=== PATIENT | male | born 1975 | race Caucasian/White ===

== ENCOUNTER 2018-04-13 06:58 | Emergency (ER) | payer OTHER ==
[~2018-04-13] VITALS: Ht 188 cm; Wt 97.5 kg
[~2018-04-13 06:58] MED LIST: AUGMENTIN 875875 M1 PO; KEFLEX500 MG PO; NOHOMEMEDICATIONS; PREDNISONE 20 M20 M1 PO; PREDNISONE50 MG PO; PROMETHAZINE-D120 ML PO; SINUS RELIEF14.7 ML NS
[2018-04-13] MEDS ORDERED: LITHIUM CARBON300 M3 PO (07:12)
[2018-04-13] MEDS ORDERED: CLONAZEPAM 1 MG1 M1 PO (07:12)
[2018-04-13] MEDS ORDERED: DEPAKOTE ER500 MG PO ×2 (07:13)
[2018-04-13 07:50] LABS: ABSOLUTE EOSINOPHILS 0.1 thou/uL (0.0-0.7); ABSOLUTE LYMPHOCYTES 1.9 thou/uL (0.8-5.3); ABSOLUTE MONOCYTES 0.7 thou/uL (0.0-1.2); BASOPHILS 0.4 %; EOSINOPHILS 1.3 %; HEMATOCRIT 43.7 % (42.0-52.0); HEMOGLOBIN 15.3 gm/dL (14.0-18.0); LYMPHOCYTES 24.8 %; MCH 30.8 pg (26.0-34.0); MCV 88.1 fL (80.0-100.0); MONOCYTES 9.5 %; MPV 8.3 fl. (7.2-11.1); NUCLEATED RBCS 0 /100WBC; PLATELET COUNT* 361 thou/uL (150-400); RBC 4.96 mil/uL (4.50-6.00); RDW-CV 12.8 % (10.5-14.5); WBC 7.8 thou/uL (4.0-11.0)
[2018-04-13 08:00] LABS: ANION GAP 7 mmol/L (7-16); BUN 10 mg/dL (7-18); CALCIUM 9.1 mg/dL (8.5-10.1); CHLORIDE 98 mmol/L (98-107); CO2 29 mmol/L (21-32); GLUCOSE 356 mg/dL (70-99); POTASSIUM 3.7 mmol/L (3.5-5.1); SODIUM 134 mmol/L (136-145)
[2018-04-13 08:04] LABS: ALBUMIN 3.5 g/dL (3.4-5.0); ALKALINE PHOSPHATASE 93 U/L (46-116); LIPASE 222 U/L (73-393); SGOT 6 U/L (15-37); SGPT 19 U/L (30-65); TOTAL BILIRUBIN 0.2 mg/dL (<0.1-1.0); TOTAL PROTEIN 7.7 g/dL (6.4-8.2)
[2018-04-13 08:18] LABS: TROPONIN-I LEVEL <0.06 ng/mL (<0.06)
[2018-04-13 08:19] LABS: URINE BILIRUBIN NEGATIVE (Negative); URINE BLOOD NEGATIVE (Negative); URINE CLARITY CLEAR; URINE COLOR YELLOW; URINE GLUCOSE-RANDOM 2+ (Negative); URINE KETONES TRACE (Negative); URINE LEUKOCYTES-REFLEX NEGATIVE (Negative); URINE NITRITE-REFLEX NEGATIVE (Negative); URINE PROTEIN NEGATIVE (Negative); URINE SPECIFIC GRAVITY 1.015 (1.005-1.030)
[2018-04-13] MEDS ORDERED: ZOFRAN4 MG PO (09:32)
[2018-04-13] MEDS ORDERED: PEPCID40 MG PO (09:32)
[2018-04-13] MEDS ORDERED: TRAMADOL 50 MG50 MG PO (09:32)
[2018-04-13 09:49] VITALS: BP 135/87
--- NOTE | 2018-04-13 10:35 | EKG ---
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
== END 2018-04-13 09:51 | disposition home or self-care (01) ==
LOC: M.ERS 06:58
PROVIDERS: Emergency Medicine
DX: R10.12 Left upper quadrant pain (principal); R11.0 Nausea; E11.9 Type 2 diabetes mellitus without complications; F31.9 Bipolar disorder, unspecified

== ENCOUNTER 2018-04-15 21:32 | Emergency (ER) | payer OTHER ==
[~2018-04-15] VITALS: Ht 188 cm; Wt 102.1 kg
[~2018-04-15 21:32] MED LIST changes: +CLONAZEPAM 1 MG1 M1 PO; +DEPAKOTE ER500 MG PO; +LITHIUM CARBON300 M3 PO; +PEPCID40 MG PO; +TRAMADOL 50 MG50 MG PO; +ZOFRAN4 MG PO
[2018-04-15 21:50] LABS: URINE BILIRUBIN NEGATIVE (Negative); URINE BLOOD NEGATIVE (Negative); URINE CLARITY CLEAR; URINE COLOR YELLOW; URINE GLUCOSE-RANDOM 3+ (Negative); URINE KETONES NEGATIVE (Negative); URINE LEUKOCYTES-REFLEX NEGATIVE (Negative); URINE NITRITE-REFLEX NEGATIVE (Negative); URINE PROTEIN NEGATIVE (Negative); URINE SPECIFIC GRAVITY <= 1.005 (1.005-1.030)
[2018-04-15 22:46] LABS: ABSOLUTE BASOPHILS 0.1 thou/uL (0.0-0.2); ABSOLUTE EOSINOPHILS 0.1 thou/uL (0.0-0.7); ABSOLUTE LYMPHOCYTES 2.4 thou/uL (0.8-5.3); ABSOLUTE MONOCYTES 0.7 thou/uL (0.0-1.2); ABSOLUTE NEUTROPHILS 5.7 thou/uL (1.6-8.1); BASOPHILS 1.4 %; EOSINOPHILS 0.9 %; HEMATOCRIT 44.9 % (42.0-52.0); HEMOGLOBIN 15.4 gm/dL (14.0-18.0); LYMPHOCYTES 26.4 %; MCH 30.5 pg (26.0-34.0); MCHC 34.2 g/dL (28.0-37.0); MCV 89.3 fL (80.0-100.0); MPV 8.2 fl. (7.2-11.1); NUCLEATED RBCS 0 /100WBC; PLATELET COUNT* 379 thou/uL (150-400); POLYS 63.3 %; RBC 5.03 mil/uL (4.50-6.00); RDW-CV 12.8 % (10.5-14.5); WBC 8.9 thou/uL (4.0-11.0)
[2018-04-15 22:54] LABS: CALCIUM 9.4 mg/dL (8.5-10.1); CREATININE 1.1 mg/dL (0.6-1.3); POTASSIUM 3.8 mmol/L (3.5-5.1)
[2018-04-15 22:59] LABS: ALBUMIN 3.6 g/dL (3.4-5.0); TOTAL BILIRUBIN 0.3 mg/dL (<0.1-1.0); TOTAL PROTEIN 7.5 g/dL (6.4-8.2)
[2018-04-16] MEDS ORDERED: PHENERGAN 25 MG25 M1 PO (00:16)
[2018-04-16] MEDS ORDERED: NEURONTIN 300300 M1 PO (00:16)
[2018-04-16] MEDS ORDERED: PRILOSEC 20 MG20 MG PO (00:16)
[2018-04-16 00:32] VITALS: BP 104/55
== END 2018-04-16 00:33 | disposition left against medical advice (07) ==
LOC: M.ERS 21:32
PROVIDERS: Nurse Practitioner Family
DX: E11.65 Type 2 diabetes mellitus with hyperglycemia (principal); K21.9 Gastro-esophageal reflux disease without esophagitis; M54.30 Sciatica, unspecified side; F31.9 Bipolar disorder, unspecified

== ENCOUNTER 2018-07-10 19:53 | Emergency (ER) | payer OTHER ==
[~2018-07-10] VITALS: Ht 188 cm; Wt 97.1 kg
[~2018-07-10 19:53] MED LIST changes: +NEURONTIN 300300 M1 PO; +PHENERGAN 25 MG25 M1 PO; +PRILOSEC 20 MG20 MG PO
[2018-07-10] MEDS ORDERED: VALIUM (20:02)
[2018-07-10 20:37] LABS: ABSOLUTE BASOPHILS 0.1 thou/uL (0.0-0.2); ABSOLUTE EOSINOPHILS 0.5 thou/uL (0.0-0.7); ABSOLUTE LYMPHOCYTES 2.3 thou/uL (0.8-5.3); ABSOLUTE MONOCYTES 0.6 thou/uL (0.0-1.2); ABSOLUTE NEUTROPHILS 5.3 thou/uL (1.6-8.1); BASOPHILS 0.9 %; EOSINOPHILS 5.8 %; HEMATOCRIT 41.1 % (42.0-52.0); HEMOGLOBIN 14.4 gm/dL (14.0-18.0); LYMPHOCYTES 26.5 %; MCH 30.5 pg (26.0-34.0); MCV 87.3 fL (80.0-100.0); MONOCYTES 6.4 %; MPV 7.7 fl. (7.2-11.1); NUCLEATED RBCS 0 /100WBC; PLATELET COUNT* 381 thou/uL (150-400); POLYS 60.4 %; RBC 4.71 mil/uL (4.50-6.00); RDW-CV 12.9 % (10.5-14.5); WBC 8.7 thou/uL (4.0-11.0)
[2018-07-10 20:46] LABS: ANION GAP 11 mmol/L (7-16); BUN 12 mg/dL (7-18); CALCIUM 9.2 mg/dL (8.5-10.1); CHLORIDE 98 mmol/L (98-107); CO2 27 mmol/L (21-32); CREATININE 0.9 mg/dL (0.6-1.3); GLUCOSE 397 mg/dL (70-99); POTASSIUM 3.7 mmol/L (3.5-5.1); SODIUM 136 mmol/L (136-145)
[2018-07-10 21:01] LABS: ALBUMIN 3.3 g/dL (3.4-5.0); ALKALINE PHOSPHATASE 81 U/L (46-116); LIPASE 148 U/L (73-393); SGOT 6 U/L (15-37); SGPT 19 U/L (30-65); TOTAL BILIRUBIN 0.2 mg/dL (<0.1-1.0); TOTAL PROTEIN 7.3 g/dL (6.4-8.2); TROPONIN-I LEVEL <0.06 ng/mL (<0.06)
[2018-07-10 21:17] LABS: URINE BILIRUBIN NEGATIVE (Negative); URINE BLOOD NEGATIVE (Negative); URINE CLARITY CLEAR; URINE COLOR YELLOW; URINE GLUCOSE-RANDOM 3+ (Negative); URINE KETONES TRACE (Negative); URINE LEUKOCYTES-REFLEX NEGATIVE (Negative); URINE NITRITE-REFLEX NEGATIVE (Negative); URINE PROTEIN NEGATIVE (Negative); URINE SPECIFIC GRAVITY <= 1.005 (1.005-1.030); URINE UROBILINOGEN 0.2 E.U./dl (0.2-1.0)
[2018-07-10] MEDS ORDERED: ZPAK PO (21:28)
[2018-07-10] MEDS ORDERED: NORCO 5-325 TA1 EACH PO (21:28)
[2018-07-10] MEDS ORDERED: ZOFRAN ODT4 MG PO (21:28)
[2018-07-10 22:43] VITALS: BP 148/78
--- NOTE | 2018-07-12 11:37 | EKG ---
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 : 1975 Requested By: Yue Meade Order Number: [id number] MD: Jose Guadalupe Womack Measurements Intervals [place] Rate: 88 P: 11 [place]: 172 QRS: 113 QRSD: 104 T: 5 QT: 379 QTc: 459 Interpretive Statements Sinus rhythm Left posterior fascicular block Abnormal R-wave progression, late transition Inferior infarct, old Compared to ECG 04/13/2018 08:17:12 Left posterior fascicular block now present Myocardial infarct finding still present Electronically Signed On 07-12-2018 11:37:33 CDT by Jose Guadalupe Womack [email or web address] <ELECTRONICALLY SIGNED> By: Jose Guadalupe Womack MD, [facility] 07/12/18 1137 07 07 Jose Guadalupe Womack MD, [facility] /EPI
== END 2018-07-10 22:46 | disposition home or self-care (01) ==
LOC: M.ERS 19:53
PROVIDERS: Physician Assistant
DX: J18.9 Pneumonia, unspecified organism (principal); E11.65 Type 2 diabetes mellitus with hyperglycemia; R10.13 Epigastric pain; R10.84 Generalized abdominal pain; R10.12 Left upper quadrant pain; F31.9 Bipolar disorder, unspecified

== ENCOUNTER 2018-10-23 16:12 | Emergency (ER) | payer OTHER ==
[~2018-10-23] VITALS: Ht 188 cm; Wt 98.0 kg
[~2018-10-23 16:12] MED LIST changes: +NORCO 5-325 TA1 EACH PO; +VALIUM; +ZOFRAN ODT4 MG PO; +ZPAK PO
[2018-10-23 16:46] LABS: ABSOLUTE BASOPHILS 0.1 thou/uL (0.0-0.2); ABSOLUTE EOSINOPHILS 0.1 thou/uL (0.0-0.7); ABSOLUTE MONOCYTES 0.5 thou/uL (0.0-1.2); ABSOLUTE NEUTROPHILS 4.4 thou/uL (1.6-8.1); BASOPHILS 1.3 %; EOSINOPHILS 1.6 %; HEMATOCRIT 42.7 % (42.0-52.0); HEMOGLOBIN 14.8 gm/dL (14.0-18.0); LYMPHOCYTES 28.3 %; MCH 30.8 pg (26.0-34.0); MCHC 34.7 g/dL (28.0-37.0); MCV 88.7 fL (80.0-100.0); MONOCYTES 6.8 %; NUCLEATED RBCS 0 /100WBC; PLATELET COUNT* 386 thou/uL (150-400); RBC 4.82 mil/uL (4.50-6.00); RDW-CV 12.8 % (10.5-14.5); WBC 7.1 thou/uL (4.0-11.0)
[2018-10-23 16:55] LABS: ANION GAP 7 mmol/L (7-16); BUN 11 mg/dL (7-18); CALCIUM 9.2 mg/dL (8.5-10.1); CHLORIDE 101 mmol/L (98-107); CO2 28 mmol/L (21-32); CREATININE 0.9 mg/dL (0.6-1.3); GLUCOSE 213 mg/dL (70-99); POTASSIUM 3.8 mmol/L (3.5-5.1); SODIUM 136 mmol/L (136-145)
[2018-10-23 17:04] LABS: ALBUMIN 3.6 g/dL (3.4-5.0); ALKALINE PHOSPHATASE 72 U/L (46-116); LIPASE 426 U/L (73-393); SGOT 10 U/L (15-37); SGPT 22 U/L (30-65); TOTAL BILIRUBIN 0.3 mg/dL (<0.1-1.0); TOTAL PROTEIN 7.4 g/dL (6.4-8.2); TROPONIN-I LEVEL <0.06 ng/mL (<0.06)
[2018-10-23] MEDS ORDERED: METFORMIN HCL500 M2 PO (17:13)
[2018-10-23] MEDS ORDERED: LIPITOR10 MG PO (17:14)
[2018-10-23] MEDS ORDERED: JANUVIA100 MG PO (17:14)
[2018-10-23] MEDS ORDERED: VALIUM5 MG PO (17:14)
[2018-10-23 17:22] LABS: URINE BILIRUBIN NEGATIVE (Negative); URINE BLOOD NEGATIVE (Negative); URINE CLARITY CLEAR; URINE COLOR YELLOW; URINE GLUCOSE-RANDOM 2+ (Negative); URINE KETONES TRACE (Negative); URINE LEUKOCYTES-REFLEX NEGATIVE (Negative); URINE NITRITE-REFLEX NEGATIVE (Negative); URINE PROTEIN NEGATIVE (Negative); URINE SPECIFIC GRAVITY >= 1.030 (1.005-1.030); URINE UROBILINOGEN 0.2 E.U./dl (0.2-1.0)
[2018-10-23] MEDS ORDERED: NORCO 5-325 TA1 EAC1 PO (18:18)
[2018-10-23] MEDS ORDERED: BENTYL 20 MG TA20 M1 PO (18:18)
[2018-10-23] MEDS ORDERED: ZOFRAN ODT4 MG DISSOLVE (18:18)
[2018-10-23 18:33] VITALS: BP 127/80
--- NOTE | 2018-10-24 11:19 | EKG ---
[place] [address] ELECTROCARDIOGRAM REPORT Name: CHRISTINA JOHNSTON Room: [facility]#: [id number] Admission: 10/23/18 Attend Phys: Discharge: 10/23/18 Date of : 75 Report #: [id number] THIS REPORT FOR: //name// [facility] ED Test Date: 2018-10-23 Test Time: 16:49:08 Pat Name: CHRISTINA JOHNSTON Department: Room: Gender: M Lab Specialist: KRISTYN : 1975 Requested By: José Luis Busch Order Number: [id number] MD: Teofilo Walker Measurements Intervals [place] Rate: 70 P: 24 [place]: 168 QRS: 72 QRSD: 106 T: 26 QT: 414 QTc: 447 Interpretive Statements Sinus rhythm Inferior infarct, old Compared to ECG 07/10/2018 20:08:05 Left posterior fascicular block no longer present Myocardial infarct finding still present Electronically Signed On 10-24-2018 11:19:38 CDT by Teofilo Walker [email or web address] <ELECTRONICALLY SIGNED> By: James Walker MD, [facility] 10/24/18 1119 1649 1649 James Walker MD, [facility] /EPI
== END 2018-10-23 18:34 | disposition home or self-care (01) ==
LOC: M.ERS 16:12
PROVIDERS: Emergency Medicine Emergency Medical Services
DX: R10.30 Lower abdominal pain, unspecified (principal); R19.7 Diarrhea, unspecified; R11.2 Nausea with vomiting, unspecified; E11.9 Type 2 diabetes mellitus without complications; F31.9 Bipolar disorder, unspecified

== ENCOUNTER 2019-08-23 07:59 | Emergency (ER) | payer OTHER ==
[~2019-08-23] VITALS: Ht 188 cm; Wt 105.2 kg
[~2019-08-23 07:59] MED LIST changes: +BENTYL 20 MG TA20 M1 PO; +JANUVIA100 MG PO; +LIPITOR10 MG PO; +METFORMIN HCL500 M2 PO; +NORCO 5-325 TA1 EAC1 PO; +VALIUM5 MG PO; +ZOFRAN ODT4 MG DISSOLVE
[2019-08-23 08:33] LABS: ABSOLUTE BASOPHILS 0.1 thou/uL (0.0-0.2); ABSOLUTE EOSINOPHILS 0.1 thou/uL (0.0-0.7); ABSOLUTE LYMPHOCYTES 2.1 thou/uL (0.8-5.3); ABSOLUTE MONOCYTES 0.9 thou/uL (0.0-1.2); ABSOLUTE NEUTROPHILS 9.9 thou/uL (1.6-8.1); BASOPHILS 0.5 %; HEMATOCRIT 41.3 % (42.0-52.0); HEMOGLOBIN 14.3 gm/dL (14.0-18.0); LYMPHOCYTES 16.3 %; MCH 30.3 pg (26.0-34.0); MCHC 34.5 g/dL (28.0-37.0); MCV 87.6 fL (80.0-100.0); MPV 7.8 fl. (7.2-11.1); NUCLEATED RBCS 0 /100WBC; PLATELET COUNT* 317 thou/uL (150-400); POLYS 75.2 %; RBC 4.72 mil/uL (4.50-6.00); RDW-CV 13.2 % (10.5-14.5); WBC 13.1 thou/uL (4.0-11.0)
[2019-08-23 08:38] LABS: CALCIUM 8.3 mg/dL (8.5-10.1); POTASSIUM 3.9 mmol/L (3.5-5.1)
[2019-08-23 08:49] LABS: ALBUMIN 3.2 g/dL (3.4-5.0); MAGNESIUM 1.6 mg/dL (1.8-2.4); TOTAL BILIRUBIN 0.3 mg/dL (<0.1-1.0); TOTAL PROTEIN 6.8 g/dL (6.4-8.2)
[2019-08-23] MEDS ORDERED: NORCO 5-325 TA1 EAC1 PO (09:10)
[2019-08-23] MEDS ORDERED: ZPAK PO (09:10)
[2019-08-23 09:25] VITALS: BP 134/78
--- NOTE | 2019-08-23 15:41 | EKG ---
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: : 1975 Requested By: José Luis Busch Order Number: [id number] MD: Ebenezer August Measurements Intervals [place] Rate: 81 P: -13 DC: 171 QRS: 85 QRSD: 98 T: 38 QT: 400 QTc: 465 Interpretive Statements Sinus rhythm Compared to ECG 10/23/2018 16:49:08 Myocardial infarct finding no longer present Electronically Signed On 08-23-2019 15:40:44 CDT by Ebenezer August [email or web address] <ELECTRONICALLY SIGNED> By: Ebenezer August MD, [facility] 08/23/19 1540 0802 08 Ebenezer August MD, [facility] /EPI
== END 2019-08-23 09:26 | disposition home or self-care (01) ==
LOC: M.ERS 07:59
PROVIDERS: Emergency Medicine Emergency Medical Services
DX: R07.89 Other chest pain (principal); E11.9 Type 2 diabetes mellitus without complications; E78.00 Pure hypercholesterolemia, unspecified; Z79.899 Other long term (current) drug therapy; Z98.890 Other specified postprocedural states

== ENCOUNTER 2019-11-19 17:46 | Emergency (ER) | payer OTHER ==
[~2019-11-19] VITALS: Ht 188 cm; Wt 104.3 kg
[2019-11-19 18:43] LABS: URINE BILIRUBIN NEGATIVE (Negative); URINE BLOOD NEGATIVE (Negative); URINE CLARITY CLEAR; URINE COLOR YELLOW; URINE GLUCOSE-RANDOM 3+ (Negative); URINE KETONES TRACE (Negative); URINE LEUKOCYTES-REFLEX NEGATIVE (Negative); URINE NITRITE-REFLEX NEGATIVE (Negative); URINE PROTEIN NEGATIVE (Negative); URINE UROBILINOGEN 0.2 E.U./dl (0.2-1.0)
[2019-11-19 18:52] LABS: ABSOLUTE BASOPHILS 0.1 thou/uL (0.0-0.2); ABSOLUTE EOSINOPHILS 0.1 thou/uL (0.0-0.7); ABSOLUTE LYMPHOCYTES 2.4 thou/uL (0.8-5.3); ABSOLUTE MONOCYTES 0.6 thou/uL (0.0-1.2); ABSOLUTE NEUTROPHILS 6.5 thou/uL (1.6-8.1); BASOPHILS 0.8 %; EOSINOPHILS 1.5 %; HEMATOCRIT 40.1 % (42.0-52.0); HEMOGLOBIN 14.2 gm/dL (14.0-18.0); LYMPHOCYTES 24.4 %; MCH 30.6 pg (26.0-34.0); MCHC 35.5 g/dL (28.0-37.0); MCV 86.1 fL (80.0-100.0); MONOCYTES 6.5 %; MPV 7.7 fl. (7.2-11.1); NUCLEATED RBCS 0 /100WBC; PLATELET COUNT* 333 thou/uL (150-400); POLYS 66.8 %; RBC 4.66 mil/uL (4.50-6.00); WBC 9.7 thou/uL (4.0-11.0)
[2019-11-19 18:55] LABS: CALCIUM 8.7 mg/dL (8.5-10.1); CREATININE 0.9 mg/dL (0.6-1.3); POTASSIUM 3.7 mmol/L (3.5-5.1)
[2019-11-19 19:00] LABS: ALBUMIN 3.3 g/dL (3.4-5.0); TOTAL BILIRUBIN 0.4 mg/dL (<0.1-1.0); TOTAL PROTEIN 7.1 g/dL (6.4-8.2)
[2019-11-19] MEDS ORDERED: NORCO 5-325 TA1 EAC2 PO (19:52)
[2019-11-19] MEDS ORDERED: ONDANSETRON ODT4 MG PO (19:52)
[2019-11-19 20:23] VITALS: BP 148/96
== END 2019-11-19 20:23 | disposition home or self-care (01) ==
LOC: M.ERS 17:46
PROVIDERS: Physician Assistant
DX: R10.84 Generalized abdominal pain (principal); R19.7 Diarrhea, unspecified; E11.9 Type 2 diabetes mellitus without complications; E78.00 Pure hypercholesterolemia, unspecified

== ENCOUNTER 2019-12-31 21:07 | Inpatient (IN) | payer OTHER ==
[~2019-12-31] VITALS: Ht 188 cm; Wt 96.0 kg
[~2019-12-31 21:07] MED LIST changes: +NORCO 5-325 TA1 EAC2 PO; +ONDANSETRON ODT4 MG PO
[2019-12-31 21:12] VITALS: BP 196/115
[2019-12-31 21:47] LABS: INFLUENZA A ANTIGEN Negative (Negative); INFLUENZA B ANTIGEN Negative (Negative)
[2019-12-31 22:01] LABS: ABSOLUTE LYMPHOCYTES 1.5 thou/uL (0.8-5.3); ABSOLUTE MONOCYTES 0.6 thou/uL (0.0-1.2); ABSOLUTE NEUTROPHILS 3.6 thou/uL (1.6-8.1); BASOPHILS 0.4 %; EOSINOPHILS 0.3 %; HEMATOCRIT 42.5 % (42.0-52.0); HEMOGLOBIN 14.7 gm/dL (14.0-18.0); LYMPHOCYTES 26.5 %; MCH 29.8 pg (26.0-34.0); MCHC 34.5 g/dL (28.0-37.0); MCV 86.4 fL (80.0-100.0); MONOCYTES 10.1 %; NUCLEATED RBCS 0 /100WBC; PLATELET COUNT* 242 thou/uL (150-400); POLYS 62.7 %; RBC 4.92 mil/uL (4.50-6.00); RDW-CV 13.3 % (10.5-14.5); WBC 5.8 thou/uL (4.0-11.0)
[2019-12-31 22:03] LABS: CALCIUM 9.3 mg/dL (8.5-10.1); POTASSIUM 3.2 mmol/L (3.5-5.1)
[2019-12-31 22:08] LABS: ALBUMIN 3.6 g/dL (3.4-5.0); TOTAL BILIRUBIN 0.4 mg/dL (<0.1-1.0)
[2020-01-01] VITALS (7 sets, daily range): BP systolic 120–129; BP diastolic 74–78
[2020-01-01 04:18] LABS: URINE BILIRUBIN NEGATIVE (Negative); URINE BLOOD NEGATIVE (Negative); URINE CLARITY CLEAR; URINE COLOR YELLOW; URINE GLUCOSE-RANDOM 1+ (Negative); URINE KETONES 1+ (Negative); URINE LEUKOCYTES-REFLEX NEGATIVE (Negative); URINE NITRITE-REFLEX NEGATIVE (Negative); URINE PROTEIN 1+ (Negative); URINE SPECIFIC GRAVITY >= 1.030 (1.005-1.030)
[2020-01-01 04:25] LABS: AMP/METHAMP Negative (Negative); BARBITURATES Negative (Negative); BENZODIAZEPINES POSITIVE (Negative); COCAINE Negative (Negative); METHADONE Negative (Negative); OPIATES POSITIVE (Negative); PCP Negative (Negative); THC POSITIVE (Negative)
[2020-01-01 11:37] LABS: MAGNESIUM 1.5 mg/dL (1.8-2.4); PHOSPHORUS* 2.7 mg/dL (2.5-4.9)
--- NOTE | 2020-01-01 18:21 | NUR ---
REPORT RECIEVED FROM ED. ADMISSION COMPLETED BY RESOURSE NURSE, I CONCUR WITH HER ASSESSMENT. PT ORIENTED TO ROOM, CALL LIGHT SHOWN. FALL AGREEMENT WENT OVER, PT STATED UNDERSTANDING. ISOLATION MAINTAINED. PT ON 3L NC THIS SHIFT. IV PATENT, FLUIDS INFUSING.
[2020-01-02] VITALS (7 sets, daily range): BP systolic 103–140; BP diastolic 61–89
[2020-01-02 02:05] LABS: GLYCOHEMOGLOBIN (HGB A1C) 9.6 % (4.8-5.6)
[2020-01-02 05:52] LABS: ABSOLUTE LYMPHOCYTES 1.5 thou/uL (0.8-5.3); ABSOLUTE MONOCYTES 0.6 thou/uL (0.0-1.2); ABSOLUTE NEUTROPHILS 2.3 thou/uL (1.6-8.1); BASOPHILS 0.3 %; EOSINOPHILS 0.1 %; LYMPHOCYTES 34.3 %; MCH 29.7 pg (26.0-34.0); MCHC 34.1 g/dL (28.0-37.0); MONOCYTES 13.7 %; MPV 8.2 fl. (7.2-11.1); NUCLEATED RBCS 0 /100WBC; PLATELET COUNT* 205 thou/uL (150-400); POLYS 51.6 %; RBC 4.26 mil/uL (4.50-6.00); RDW-CV 13.2 % (10.5-14.5); WBC 4.4 thou/uL (4.0-11.0)
[2020-01-02 05:59] LABS: CALCIUM 8.2 mg/dL (8.5-10.1); CREATININE 0.7 mg/dL (0.6-1.3); POTASSIUM 4.2 mmol/L (3.5-5.1)
[2020-01-02 06:04] LABS: MAGNESIUM 1.8 mg/dL (1.8-2.4); POTASSIUM 4.6 mmol/L (3.5-5.1)
[2020-01-02 06:06] LABS: HEMOGLOBIN 12.6 gm/dL (14.0-18.0)
--- NOTE | 2020-01-02 16:08 | NUR ---
namita resting in bed. up with standby assistance in room. convalescent plasma to be infused today. remdezivir and dexamethasone per iv. vss. tessalon pearls and mucinex for cough.
[2020-01-03] VITALS: BP 94/51
[2020-01-03 04:00] VITALS: BP 115/78
[2020-01-03 05:17] LABS: ABSOLUTE LYMPHOCYTES 1.8 thou/uL (0.8-5.3); ABSOLUTE MONOCYTES 0.5 thou/uL (0.0-1.2); BASOPHILS 0.3 %; EOSINOPHILS 0.1 %; HEMATOCRIT 37.3 % (42.0-52.0); HEMOGLOBIN 12.6 gm/dL (14.0-18.0); LYMPHOCYTES 41.8 %; MCH 29.5 pg (26.0-34.0); MCHC 33.9 g/dL (28.0-37.0); MCV 86.9 fL (80.0-100.0); MONOCYTES 12.1 %; MPV 8.4 fl. (7.2-11.1); NUCLEATED RBCS 0 /100WBC; PLATELET COUNT* 249 thou/uL (150-400); POLYS 45.7 %; RBC 4.29 mil/uL (4.50-6.00); RDW-CV 13.3 % (10.5-14.5); WBC 4.3 thou/uL (4.0-11.0)
[2020-01-03 06:30] LABS: ALBUMIN 3.1 g/dL (3.4-5.0); CALCIUM 8.8 mg/dL (8.5-10.1); CREATININE 1.1 mg/dL (0.6-1.3); POTASSIUM 3.8 mmol/L (3.5-5.1); TOTAL BILIRUBIN 0.2 mg/dL (<0.1-1.0); TOTAL PROTEIN 7.2 g/dL (6.4-8.2)
[2020-01-03 08:00] VITALS: BP 115/73
[2020-01-03 12:00] VITALS: BP 116/60
--- NOTE | 2020-01-03 14:48 | NUR ---
CM SPOKE TO THE PT OVER THE PHONE TO COMPLETE CM ASSESSEMENT. PT CURRENTLY UNDER ENHANCED PRECAUTIONS D/T BEING COVID POSITIVE. PT ALERT AND ORIENTED. PT NORMALLY INDEPENDENT WITH ADL'S AND ACTIVE. PT USES 0 DME. PT HAS 0 HX OF HH OR SNF. PT INFORMS THAT HE HOPE TO RETURN HOME AT D/C WITH NO NEEDS. PT CURRENTLY ON 3L O2, BUT DOES NOT USE OXYGEN AT HOME. PT ALSO REMAINS ON I.V. ABT'S. PULM CONSULT PENDING. CM WILL REMAIN AVAILABLE TO ASSIST WITH D/C PLANNING.
[2020-01-03 16:00] VITALS: BP 110/69
--- NOTE | 2020-01-03 16:47 | NUR ---
PT UP IN ROOM WITH STEADY GAIT. REMAINS ON RA. SATS IN UPPERS 90S. NO SOA WITH EXERTION. TOLERATING PO WELL GOOD APPETITE. UPDATED ON PT STATUS
[2020-01-04] VITALS: BP 116/73
[2020-01-04 05:04] LABS: ABSOLUTE LYMPHOCYTES 1.5 thou/uL (0.8-5.3); ABSOLUTE MONOCYTES 0.7 thou/uL (0.0-1.2); ABSOLUTE NEUTROPHILS 3.7 thou/uL (1.6-8.1); BASOPHILS 0.1 %; HEMATOCRIT 36.5 % (42.0-52.0); HEMOGLOBIN 12.3 gm/dL (14.0-18.0); LYMPHOCYTES 25.6 %; MCH 28.9 pg (26.0-34.0); MCHC 33.6 g/dL (28.0-37.0); MCV 86.1 fL (80.0-100.0); MONOCYTES 11.4 %; NUCLEATED RBCS 0 /100WBC; PLATELET COUNT* 266 thou/uL (150-400); POLYS 62.9 %; RBC 4.25 mil/uL (4.50-6.00); RDW-CV 13.2 % (10.5-14.5); WBC 5.9 thou/uL (4.0-11.0)
[2020-01-04 05:33] LABS: CALCIUM 8.8 mg/dL (8.5-10.1); CREATININE 0.9 mg/dL (0.6-1.3); MAGNESIUM 1.8 mg/dL (1.8-2.4); POTASSIUM 4.3 mmol/L (3.5-5.1); TOTAL BILIRUBIN 0.3 mg/dL (<0.1-1.0); TOTAL PROTEIN 6.6 g/dL (6.4-8.2)
[2020-01-04 08:00] VITALS: BP 114/70
--- NOTE | 2020-01-04 08:00 | NUR ---
ASSUMED CARE OF PATIENTS THIS MORNING FROM NIGHT NURSE. PT IS DOING WELL WITH NO CO OF PAIN OR NAUSEA. PT WAS EDUCATED ON POC AND DISEASE PROCESS, BED IN LOWEST POSITION AND CALL LIGHT IN REACH. WILL CONTINUE TO MONITOR.
[2020-01-05] VITALS: BP 125/81
[2020-01-05 05:41] LABS: ABSOLUTE LYMPHOCYTES 2.9 thou/uL (0.8-5.3); ABSOLUTE MONOCYTES 1.1 thou/uL (0.0-1.2); ABSOLUTE NEUTROPHILS 3.9 thou/uL (1.6-8.1); BASOPHILS 0.2 %; EOSINOPHILS 0.1 %; HEMATOCRIT 36.8 % (42.0-52.0); HEMOGLOBIN 12.8 gm/dL (14.0-18.0); LYMPHOCYTES 36.2 %; MCH 29.7 pg (26.0-34.0); MCHC 34.7 g/dL (28.0-37.0); MCV 85.6 fL (80.0-100.0); MONOCYTES 14.1 %; MPV 8.3 fl. (7.2-11.1); NUCLEATED RBCS 0 /100WBC; PLATELET COUNT* 307 thou/uL (150-400); POLYS 49.4 %; RDW-CV 13.3 % (10.5-14.5)
[2020-01-05 05:57] LABS: CALCIUM 8.9 mg/dL (8.5-10.1); CREATININE 0.9 mg/dL (0.6-1.3); POTASSIUM 3.3 mmol/L (3.5-5.1)
[2020-01-05 08:00] VITALS: BP 121/81
[2020-01-05] MEDS ORDERED: VENTOLIN HFA 1818 GM INH (11:17)
[2020-01-05] MEDS ORDERED: HUMALOG100 UNIT/1 SUBQ (11:17)
[2020-01-05] MEDS ORDERED: DEXAMETHASONE1 MG PO (11:17)
[2020-01-05] MEDS ORDERED: PROTONIX40 M4 PO (11:17)
[2020-01-05] MEDS ORDERED: LEVOFLOXACIN750 MG PO (11:17)
[2020-01-05 11:28] VITALS: BP 121/81
== END 2020-01-05 11:30 | disposition home or self-care (01) | DRG 177 ==
LOC: M.ERS 21:07 → M.2W 22:48 → M.TBA-ER 22:48 → M.2W 01-01 12:51
PROVIDERS: Internal Medicine Critical Care Medicine; Personal Emergency Response Attendant; ADMIT Internal Medicine; ATTEND Internal Medicine
PROC: XW033E5 Introduction of Remdesivir Anti-infective into Peripheral Vein, Percutaneous Approach, New Technology Group 5 (ICD-10-PCS; principal; 2020-01-01)
PROC: XW13325 Transfusion of Convalescent Plasma (Nonautologous) into Peripheral Vein, Percutaneous Approach, New Technology Group 5 (ICD-10-PCS; 2020-01-02)
DX: U07.1 COVID-19 (principal); J12.89 Other viral pneumonia; J96.01 Acute respiratory failure with hypoxia; R65.10 Systemic inflammatory response syndrome (SIRS) of non-infectious origin without acute organ dysfunction; F31.9 Bipolar disorder, unspecified; F41.9 Anxiety disorder, unspecified; E78.00 Pure hypercholesterolemia, unspecified; E11.9 Type 2 diabetes mellitus without complications; I16.0 Hypertensive urgency; I10 Essential (primary) hypertension; K21.9 Gastro-esophageal reflux disease without esophagitis; F19.10 Other psychoactive substance abuse, uncomplicated; Z79.899 Other long term (current) drug therapy; Z79.84 Long term (current) use of oral hypoglycemic drugs; Z28.21 Immunization not carried out because of patient refusal

== ENCOUNTER 2020-01-24 18:46 | Emergency (ER) | payer OTHER ==
[~2020-01-24] VITALS: Ht 188 cm; Wt 99.8 kg
[~2020-01-24 18:46] MED LIST changes: +DEXAMETHASONE1 MG PO; +HUMALOG100 UNIT/1 SUBQ; +LEVOFLOXACIN750 MG PO; +PROTONIX40 M4 PO; +VENTOLIN HFA 1818 GM INH
[2020-01-24] MEDS ORDERED: DEPAKOTE500 MG PO (18:59)
[2020-01-24] MEDS ORDERED: OZEMPIC0.25 MG/0. SUBQ (19:01)
[2020-01-24 19:50] LABS: URINE BILIRUBIN NEGATIVE (Negative); URINE BLOOD NEGATIVE (Negative); URINE CLARITY CLEAR; URINE COLOR YELLOW; URINE GLUCOSE-RANDOM 3+ (Negative); URINE KETONES NEGATIVE (Negative); URINE LEUKOCYTES-REFLEX NEGATIVE (Negative); URINE NITRITE-REFLEX NEGATIVE (Negative); URINE PROTEIN NEGATIVE (Negative); URINE SPECIFIC GRAVITY <= 1.005 (1.005-1.030); URINE UROBILINOGEN 0.2 E.U./dl (0.2-1.0)
[2020-01-24 19:51] LABS: ABSOLUTE BASOPHILS 0.1 thou/uL (0.0-0.2); ABSOLUTE EOSINOPHILS 0.1 thou/uL (0.0-0.7); ABSOLUTE LYMPHOCYTES 1.8 thou/uL (0.8-5.3); ABSOLUTE MONOCYTES 0.7 thou/uL (0.0-1.2); ABSOLUTE NEUTROPHILS 5.2 thou/uL (1.6-8.1); BASOPHILS 1.1 %; EOSINOPHILS 1.4 %; HEMATOCRIT 42.2 % (42.0-52.0); HEMOGLOBIN 14.5 gm/dL (14.0-18.0); LYMPHOCYTES 23.2 %; MCH 30.3 pg (26.0-34.0); MCHC 34.3 g/dL (28.0-37.0); MCV 88.2 fL (80.0-100.0); MONOCYTES 8.3 %; MPV 7.9 fl. (7.2-11.1); NUCLEATED RBCS 0 /100WBC; PLATELET COUNT* 303 thou/uL (150-400); RBC 4.79 mil/uL (4.50-6.00); RDW-CV 14.4 % (10.5-14.5); WBC 7.9 thou/uL (4.0-11.0)
[2020-01-24 19:56] LABS: CREATININE 0.8 mg/dL (0.6-1.3); POTASSIUM 4.2 mmol/L (3.5-5.1)
[2020-01-24 20:03] LABS: ALBUMIN 3.5 g/dL (3.4-5.0); TOTAL BILIRUBIN 0.4 mg/dL (<0.1-1.0); TOTAL PROTEIN 7.3 g/dL (6.4-8.2)
[2020-01-24 22:00] VITALS: BP 137/89
== END 2020-01-24 22:01 | disposition home or self-care (01) ==
LOC: M.ERS 18:46
PROVIDERS: Physician Assistant
DX: E11.65 Type 2 diabetes mellitus with hyperglycemia (principal); F31.9 Bipolar disorder, unspecified; E78.00 Pure hypercholesterolemia, unspecified; Z79.899 Other long term (current) drug therapy; Z79.4 Long term (current) use of insulin

== ENCOUNTER 2020-03-11 00:34 | Emergency (ER) | payer OTHER ==
[~2020-03-11] VITALS: Ht 188 cm; Wt 90.7 kg
[~2020-03-11 00:34] MED LIST changes: +DEPAKOTE500 MG PO; +OZEMPIC0.25 MG/0. SUBQ
[2020-03-11] MEDS ORDERED: OXYCODONE HCL 55 MG PO (04:00)
[2020-03-11 05:18] VITALS: BP 158/97
== END 2020-03-11 05:18 | disposition home or self-care (01) ==
LOC: M.ERS 00:34
DX: S02.609A Fracture of mandible, unspecified, initial encounter for closed fracture (principal); S42.202A Unspecified fracture of upper end of left humerus, initial encounter for closed fracture; E11.9 Type 2 diabetes mellitus without complications; E78.5 Hyperlipidemia, unspecified; Z79.899 Other long term (current) drug therapy; Z79.4 Long term (current) use of insulin; Y04.2XXA Assault by strike against or bumped into by another person, initial encounter; Y93.89 Activity, other specified; Y92.89 Other specified places as the place of occurrence of the external cause; Y99.8 Other external cause status

== ENCOUNTER 2020-10-29 17:43 | Emergency (ER) | payer OTHER ==
[~2020-10-29] VITALS: Ht 188 cm; Wt 104.3 kg
[~2020-10-29 17:43] MED LIST changes: +OXYCODONE HCL 55 MG PO
[2020-10-29] MEDS ORDERED: ELIQUIS5 MG PO (17:57)
[2020-10-29 19:25] LABS: URINE BLOOD NEGATIVE (Negative); URINE CLARITY CLEAR; URINE COLOR YELLOW; URINE GLUCOSE-RANDOM NEGATIVE (Negative); URINE KETONES 1+ (Negative); URINE LEUKOCYTES-REFLEX NEGATIVE (Negative); URINE NITRITE-REFLEX NEGATIVE (Negative); URINE PROTEIN TRACE (Negative); URINE SPECIFIC GRAVITY 1.025 (1.005-1.030); URINE UROBILINOGEN 0.2 E.U./dl (0.2-1.0)
[2020-10-29 19:26] LABS: ICTOTEST (BILI CONFIRMATORY) Negative (Negative); URINE BILIRUBIN 1+ (Negative)
[2020-10-29 19:27] LABS: ABSOLUTE BASOPHILS 0.1 thou/uL (0.0-0.2); ABSOLUTE EOSINOPHILS 0.2 thou/uL (0.0-0.7); ABSOLUTE LYMPHOCYTES 2.7 thou/uL (0.8-5.3); ABSOLUTE MONOCYTES 0.6 thou/uL (0.0-1.2); ABSOLUTE NEUTROPHILS 5.2 thou/uL (1.6-8.1); BASOPHILS 0.8 %; EOSINOPHILS 1.7 %; HEMATOCRIT 46.7 % (42.0-52.0); HEMOGLOBIN 16.1 gm/dL (14.0-18.0); LYMPHOCYTES 30.8 %; MCH 30.2 pg (26.0-34.0); MCHC 34.4 g/dL (28.0-37.0); MCV 87.8 fL (80.0-100.0); MONOCYTES 7.2 %; MPV 7.5 fl. (7.2-11.1); NUCLEATED RBCS 0 /100WBC; PLATELET COUNT* 399 thou/uL (150-400); POLYS 59.5 %; RBC 5.32 mil/uL (4.50-6.00); RDW-CV 13.2 % (10.5-14.5); WBC 8.7 thou/uL (4.0-11.0)
[2020-10-29 19:37] LABS: CALCIUM 9.3 mg/dL (8.5-10.1); POTASSIUM 4.1 mmol/L (3.5-5.1)
[2020-10-29 19:41] LABS: ALBUMIN 4.3 g/dL (3.4-5.0); MAGNESIUM 1.9 mg/dL (1.8-2.4); TOTAL BILIRUBIN 0.5 mg/dL (<0.1-1.0); TOTAL PROTEIN 8.3 g/dL (6.4-8.2)
[2020-10-29 19:54] LABS: BE -0.3 mmol/L (-2 to +3); PO2 VENOUS 78.7 mmHg (35.0-45.0)
[2020-10-29] MEDS ORDERED: HYDROCODON-ACE1 EAC8 PO (21:08)
[2020-10-29] MEDS ORDERED: CIPROFLOXACIN500 M1 PO (21:08)
[2020-10-29] MEDS ORDERED: ZOFRAN ODT4 MG PO (21:08)
[2020-10-29 21:21] VITALS: BP 126/87
--- NOTE | 2020-10-30 10:47 | EKG ---
[place] [address] ELECTROCARDIOGRAM REPORT Name: CHRISTINA JOHNSTON Room: [facility]#: [id number] Admission: 10/29/20 Attend Phys: Discharge: 10/29/20 Date of : 75 Date of Service: 10/29/201922 Report #: [id number] THIS REPORT FOR: //name// [facility] ED Test Date: 2020-10-29 Test Time: 19:23:12 Pat Name: CHRISTINA JOHNSTON Department: Room: Gender: Latex Caster: [place] : 1975 Requested By: Katina Laguerre Order Number: [id number] MD: Chuck Mccormack Measurements Intervals [place] Rate: 80 P: 8 VA: 213 QRS: 109 QRSD: 93 T: 35 QT: 392 QTc: 453 Interpretive Statements Sinus rhythm Prolonged [place] interval Right axis deviation Abnormal R-wave progression, late transition Compared to ECG 08/23/2019 08:02:35 First degree AV block now present Right-axis deviation now present Electronically Signed On 10-30-2020 10:47:45 CDT by Chuck Mccormack [email or web address] <ELECTRONICALLY SIGNED> By: Chuck Mccormack MD, [facility] 10/30/20 1047 22 22 Chuck Mccormack MD, [facility] /EPI
== END 2020-10-29 21:29 | disposition home or self-care (01) ==
LOC: M.ERS 17:43
PROVIDERS: Emergency Medicine
DX: R19.7 Diarrhea, unspecified (principal); Z20.822 Contact with and (suspected) exposure to COVID-19; R10.13 Epigastric pain; E11.9 Type 2 diabetes mellitus without complications; F31.9 Bipolar disorder, unspecified; E78.00 Pure hypercholesterolemia, unspecified; Z79.51 Long term (current) use of inhaled steroids; Z79.84 Long term (current) use of oral hypoglycemic drugs; Z79.899 Other long term (current) drug therapy

== ENCOUNTER 2021-01-29 19:56 | Emergency (ER) | payer OTHER ==
[~2021-01-29] VITALS: Ht 188 cm; Wt 98.9 kg
[~2021-01-29 19:56] MED LIST changes: +CIPROFLOXACIN500 M1 PO; +ELIQUIS5 MG PO; +HYDROCODON-ACE1 EAC8 PO
[2021-01-29 20:07] VITALS: BP 174/97
== END 2021-01-29 22:30 | disposition left against medical advice (07) ==
LOC: M.ERS 19:56
DX: R51.9 Headache, unspecified (principal); Z53.21 Procedure and treatment not carried out due to patient leaving prior to being seen by health care provider